=== PATIENT | female | born 1995 | race Caucasian/White ===

== ENCOUNTER → 2017-07-05 | Outpatient (CLI) | payer SELFPAY ==
[2017-07-06 16:23] LABS: C. trachomatis,PCR Negative (Neg,Equiv); Chlamydia trachomatis Source Endocervical; N. gonorrhoeae,PCR Negative (Neg,Equiv); Neisseria Source Endocervical
== END | disposition home or self-care (01) ==
LOC: MMGSC 11:47
PROVIDERS: ATTEND Family Medicine
DX: N76.0 Acute vaginitis (principal)
CPT/HCPCS: 87070; 87205; 87252; 87491; 87498; 87529; 87591; 87798